=== PATIENT | male | born 1980 | race African-American/Black ===

== ENCOUNTER 2018-03-21 13:00 | Emergency (ER) | payer OTHER ==
[~2018-03-21] VITALS: Ht 172.7 cm; Wt 84.8 kg
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
[2018-03-21] MEDS ORDERED: Ketorolac 30mg Inj IM ONE (14:00)
[2018-03-21] MEDS ORDERED: NORCO 5-325 TA1 EACH ORAL (15:53)
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
[2018-03-21 15:57] VITALS: BP 112/79
--- NOTE | 2018-03-21 16:00 | NUR ---
ED Nurse Note: A/Ox4. Pt is cleared by SHADI Niño. DC instruction and prescriptions given, pt verbalized understanding. IV/ID wristband removed. All belongings taken by pt. Denies pain at this time. Splint applied and clutches educated by MU Cruz. Pt was able to demonstrated well and ambulated out of ER with clutches.
--- NOTE | 2018-03-21 17:34 | Diagnostic Imaging Report ---
Indication: Right foot pain Technique: 3 views right foot Comparison: none Findings: There is an oblique slightly comminuted minimally displaced and minimally impacted fracture of the fifth metatarsal shaft. No other acute fractures. No dislocations. The joint spaces are preserved. Impression: Positive for fifth metatarsal fracture
== END 2018-03-21 16:01 | disposition home or self-care (01) ==
LOC: EMR 15:41
DX: S92.354A Nondisplaced fracture of fifth metatarsal bone, right foot, initial encounter for closed fracture (principal); V03.00XA Pedestrian on foot injured in collision with car, pick-up truck or van in nontraffic accident, initial encounter; Y92.89 Other specified places as the place of occurrence of the external cause; Z91.013 Allergy to seafood
CPT/HCPCS: 29515; 73630; 96372; 99283; J1885